=== PATIENT | male | born 1990 | race African-American/Black ===

== ENCOUNTER 2017-09-04 15:35 | Emergency (ER) | payer OTHER ==
[~2017-09-04] VITALS: Ht 188 cm; Wt 83.0 kg
[2017-09-04 16:42] VITALS: BP 128/78
== END 2017-09-04 19:29 | disposition home or self-care (01) ==
LOC: ER 15:35
DX: S86.911A Strain of unspecified muscle(s) and tendon(s) at lower leg level, right leg, initial encounter (principal); X58.XXXA Exposure to other specified factors, initial encounter; Y93.67 Activity, basketball; Y92.89 Other specified places as the place of occurrence of the external cause; Y99.8 Other external cause status
CPT/HCPCS: 29505; 73562